=== PATIENT | female | born 1960 | race Two or more races ===

== ENCOUNTER 2025-04-22 13:54 | Emergency (ER) | payer OTHER ==
[~2025-04-22] VITALS: Ht 157.5 cm; Wt 65.8 kg
[2025-04-22 15:13] VITALS: BP 108/66; O2SAT 99
== END 2025-04-22 17:59 | disposition home or self-care (01) ==
LOC: ER 14:34
DX: G89.11 Acute pain due to trauma (principal); M79.675 Pain in left toe(s)